=== PATIENT | female | born 1935 | race Hispanic/Latino ===

== ENCOUNTER 2017-04-15 09:32 | Observation (INO) | payer MEDICARE, OTHER ==
--- NOTE | 2017-04-15 09:38 | ED PDOC ---
Arrival/HPI - General Time Seen by Provider: 04/15/17 09:36 Historian: Family (daughter) EM Caveat: Language Barrier (daguhter function as tranlator) - History of Present Illness Narrative History of Present Illness (Text): 04/15/17 09:29 A 82 year old female, whose past medical history includes hypertension, hyperlipidemia and diabetes, is brought into the emergency department via EMS for a possible stroke. Daughter state this morning at 0855 the patient was in the bathroom and when see went up to get her she was standing with a blank stare. Daughter notes patient then appear to slump down and was about to fall but she caught her fall. The patient appear to loss consciousness for a few seconds and when she got back to it she has mild change in speech and was confused, so she called EMS. 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 Currently the daughter states the patient speech is normal. Daughter mentions the patient came back from [place] yesterday and took her sleeping and depression medication as usual last night. HPI and ROS limited due to acuity of patient condition. 04/15/17 12:16 Time/Duration: 1 hour Symptom Onset: Sudden Symptom Course: Other Quality: Other Activities at Onset: Rest Context: Home Past Medical History - Provider Review Nursing Documentation Reviewed: Yes Family/Social History - Physician Review Nursing Documentation Reviewed: Yes Family/Social History: Unknown Family HX Allergies/Home Meds Allergies/Adverse Reactions: Allergies No Known Allergies Allergy (Verified 04/15/17 09:35) Review of Systems - Review of Systems Systems not reviewed;Unavailable: Acuity of Condition Constitutional: Fatigue. absent: Fevers Respiratory: absent: SOB, Cough, Sputum Cardiovascular: Syncope. absent: Chest Pain Gastrointestinal: absent: Abdominal Pain, Constipation, Diarrhea, Nausea, Vomiting Genitourinary Female: absent: Dysuria Musculoskeletal: absent: Arthralgias Neurological: Focal Weakness, Speech Changes, Facial Droop. absent: Headache, Dizziness Physical Exam Vital Signs Reviewed: Yes Vital Signs Temp Pulse Resp BP Pulse Ox 04/15/17 11:54 102 H 16 149/115 H 94 L 04/15/17 09:32 98.2 F 101 H 18 149/106 H 90 L Temperature: Afebrile Blood Pressure: Hypertensive Pulse: Tachycardic Respiratory Rate: Normal Appearance: Positive for: Well-Appearing, Non-Toxic, Comfortable Pain Distress: None Mental Status: Positive for: Alert and Oriented X 3 - Systems Exam Head: Present: Atraumatic, Normocephalic Pupils: Present: PERRL Extroacular Muscles: Present: EOMI Conjunctiva: Present: Normal Mouth: Present: Moist Mucous Membranes Neck: Present: Normal Range of Motion Respiratory/Chest: Present: Clear to Auscultation, Good Air Exchange. No: Respiratory Distress, Accessory Muscle Use Cardiovascular: Present: Regular Rate and Rhythm, Normal S1, S2. No: Murmurs Abdomen: Present: Normal Bowel Sounds. No: Tenderness, Distention, Peritoneal Signs Back: Present: Normal Inspection Upper Extremity: Present: Normal Inspection. No: Cyanosis, Edema Lower Extremity: Present: Normal Inspection. No: Edema Neurological: Present: GCS=15, CN II-XII Intact, Speech Normal, Motor Func Grossly Intact, Normal Sensory Function Skin: Present: Warm, Dry, Normal Color. No: Rashes Psychiatric: Present: Alert, Oriented x 3, Normal Insight, Normal Concentration Medical Decision Making ED Course and Treatment: 04/15/17 09:29 Impression: A 82 year old female with syncope vs. CVA. Differential Diagnosis include but are not limited to: Syncope vs. CVA Plan: -- EKG -- Head CT -- Chest X-ray -- Labs -- Urinalysis -- Reassess and disposition Progress Notes: 04/15/17 09:33 Code stroke called on patient's arrival. On my exam she was neurologically at baseline with normal speech and strength. EKG: Ordered, reviewed, and independently interpreted the EKG. Rate : 107 BPM Rhythm : Sinus tachycardia Interpretation : Q waves in inferior and lateral leads. Comparison : No previous EKG for comparison. 04/15/17 09:[address] Jose Soria, who is aware and is requesting a call back after CT 04/15/17 10:[address]: Creator : Shanthi Cassidy MD COMPARISON: None available. FINDINGS: HEMORRHAGE: No intracranial hemorrhage. BRAIN: There are mild chronic microangiopathic changes. There is no mass, mass effect or abnormal extra-axial fluid collection. VENTRICLES: There is moderate age-related global parenchymal volume loss and proportionate enlargement of the ventricles and cortical sulci. CALVARIUM: The skull base and calvarium are normal. PARANASAL SINUSES: Predominantly clear. MASTOID AIR CELLS: Predominantly clear. OTHER FINDINGS: None. IMPRESSION: No acute intracranial abnormality. If there is a persistent focal neurologic deficit and an ongoing clinical concern for acute infarction, an MRI of the brain without intravenous contrast would be a more sensitive modality for evaluation of hyperacute/acute ischemic infarction. Mild chronic microangiopathic changes and moderate age-related global parenchymal volume loss. Findings were discussed with Dr. Stormy Saenz on 04/15/2017 at 10 a.m. 04/15/17 10:05 Chest X-ray: Creator : Quentin Reyes MD COMPARISON: No prior. FINDINGS: LUNGS: Poor inspiration with low lung volumes, crowded bronchovascular markings and mild bibasilar atelectasis. There may also be some mild bilateral lower lobe linear scarring is well. PLEURA: No significant pleural effusion identified, no pneumothorax apparent. CARDIOVASCULAR: Heart appears enlarged. OSSEOUS STRUCTURES: Mild scoliotic deformity lower thoracic region versus side bending . VISUALIZED UPPER ABDOMEN: Normal. OTHER FINDINGS: None. IMPRESSION: Poor inspiration with low lung volumes, crowded bronchovascular markings and mild bibasilar atelectasis. There may also be some mild bilateral lower lobe linear scarring is well. Patient is not a tpa candidate because there is no deficit. Labs show elevated d-dimer which was ordered due to patient's tachycardia, near syncope and recent airline travel. Trop x 1 negative. Patient is pending CTA to r/o PE. Dr. Soria is following patient and requesting duplex of carotids. Aspirin has been given. Even if CTA is negative, will need tele observation for tia vs syncope. 04/15/17 12:22 CTA negative for PE. Will transfer to tele observation for tia with neuro on consult. - Lab Interpretations Lab Results: 04/15/17 10:00 04/15/17 09:37 Lab Results 04/15/17 11:55: Blood Type Confirm B NEGATIVE 04/15/17 10:00: D-Dimer, Quantitative 4.30 H 04/15/17 10:00: PT 10.6, INR 0.98, APTT 25.0 04/15/17 10:00: WBC 7.9, RBC 4.37, Hgb 13.1, Hct 39.6, MCV 90.6, MCH 30.0, MCHC 33.1, RDW 14.1, Plt Count 331, MPV 10.6, Gran % 57.4, Lymph % (Auto) 33.2, Titus % (Auto) 4.7, Eos % (Auto) 4.2, Baso % (Auto) 0.5, Gran # 4.50, Lymph # 2.6, Titus # 0.4, Eos # 0.3, Baso # 0.04 04/15/17 09:50: Blood Type B NEGATIVE, Antibody Screen Negative, BBK History Checked No verified bt 04/15/17 09:37: Sodium 144, Potassium 4.2, Chloride 111 H, Carbon Dioxide 21, Anion Gap 16, BUN 29 H, Creatinine 0.9, Est GFR ( Amer) > 60, Est GFR ( Non-Af Amer) 60, Random Glucose 122 H, Calcium 9.3, Total Bilirubin 0.5, AST 35 , ALT 23, Alkaline Phosphatase 52, Troponin I < 0.01, Total Protein 7.3, Albumin 4.2, Globulin 3.1, Albumin/Globulin Ratio 1.4, Triglycerides 142, Cholesterol 170, LDL Cholesterol Direct 95, HDL Cholesterol 43 I have reviewed the lab results: Yes - RAD Interpretation Radiology Orders: 04/15/17 09:37 HEAD W/O (CODE STROKE) [CT] Stat CHEST PORTABLE [RAD] Stat 04/15/17 10:46 ANGIO CHEST PE PROTOCOL [CT] Stat 04/15/17 11:21 CAROTID & VERTEBRAL DUPLEX [US] Stat - Medication Orders Current Medication Orders: Discontinued Medications Aspirin (Aspirin Chewable) 324 mg PO STAT STA Stop: 04/15/17 12:03 Last Admin: 04/15/17 12:09 Dose: 324 mg Iodixanol (Visipaque 320 Mg/Ml 100 Ml) Confirm Administered Dose 100 ml IV .STK- MED ONE Stop: 04/15/17 12:15 NIHSS Scale (Fithian) Time Performed: 09:30 - How Severe is the Stoke Baseline Level of Consciousness: 0=Alert LOC to Questions: 0=Both comments correct LOC to commands: 0=Obeys both correctly Best Gaze: 0=Normal Visual: 0=No visual loss Facial: 0=Normal Motor Arm - Left: 0=No drift Motor Arm - Right: 0=No drift Motor Leg - Left: 0=No drift Motor Leg - Right: 0=No drift Limb Ataxia: 0=Absent Sensory: 0=Normal Best Language: 0=No aphasia Dysarthia: 0=Normal articulation Extinction & Inattention (Neglect): 0=Normal, no object Score: 0 Risk Level: No Stroke Risk rTPA Inclusion/Exclusion - Refusal of Treatment Patient Refused Treatment: No - Inclusion Criteria for Altepase Patient is 18 years or Older: Yes The Clinical Diagnosis of Ischemic Stroke That is Causing a Potentially Disabling Neurological Deficit: No Time of Onset is Well Established to be Less Than 270 Minute Before Treatment Would Begin: Yes Risk/Benefit Discussed With Patient/Family Member Present: No - Scribe Statement The provider has reviewed the documentation as recorded by the Scribe Nola Herzog Provider Scribe Attestation: All medical record entries made by the Scribe were at my direction and personally dictated by me. I have reviewed the chart and agree that the record accurately reflects my personal performance of the history, physical exam, medical decision making, and the department course for this patient. I have also personally directed, reviewed, and agree with the discharge instructions and disposition. Disposition/Present on Arrival - Present on Arrival Any Indicators Present on Arrival: No - Disposition Have Diagnosis and Disposition been Completed?: Yes Diagnosis: TIA (transient ischemic attack) Disposition: HOSPITALIZED Disposition Time: 10:00 Patient Plan: Observation Patient Problems: Current Active Problems Problem Status Onset TIA (transient ischemic attack) Acute Condition: FAIR Referrals: Bry Richter, [Primary Care Provider] - Follow up with primary
--- NOTE | 2017-04-15 10:02 | CT ---
PROCEDURE: CT HEAD WITHOUT CONTRAST. HISTORY: Code Stroke COMPARISON: None available. TECHNIQUE: Axial computed tomography images were obtained through the head/brain without intravenous contrast. Radiation dose: Total exam DLP = 629.06 mGy-cm. This CT exam was performed using one or more of the following dose reduction techniques: Automated exposure control, adjustment of the mA and/or kV according to patient size, and/or use of iterative reconstruction technique. FINDINGS: HEMORRHAGE: No intracranial hemorrhage. BRAIN: There are mild chronic microangiopathic changes. There is no mass, mass effect or abnormal extra-axial fluid collection. VENTRICLES: There is moderate age-related global parenchymal volume loss and proportionate enlargement of the ventricles and cortical sulci. CALVARIUM: The skull base and calvarium are normal. PARANASAL SINUSES: Predominantly clear. MASTOID AIR CELLS: Predominantly clear. OTHER FINDINGS: None. IMPRESSION: No acute intracranial abnormality. If there is a persistent focal neurologic deficit and an ongoing clinical concern for acute infarction, an MRI of the brain without intravenous contrast would be a more sensitive modality for evaluation of hyperacute/acute ischemic infarction. Mild chronic microangiopathic changes and moderate age-related global parenchymal volume loss. Findings were discussed with Dr. Stormy Saenz on 04/15/2017 at 10 a.m.
[2017-04-15 10:03] LABS: ADD MANUAL DIFF? NO
--- NOTE | 2017-04-15 10:04 | RAD ---
HISTORY: tia COMPARISON: No prior. FINDINGS: LUNGS: Poor inspiration with low lung volumes, crowded bronchovascular markings and mild bibasilar atelectasis. There may also be some mild bilateral lower lobe linear scarring is well. PLEURA: No significant pleural effusion identified, no pneumothorax apparent. CARDIOVASCULAR: Heart appears enlarged. OSSEOUS STRUCTURES: Mild scoliotic deformity lower thoracic region versus side bending . VISUALIZED UPPER ABDOMEN: Normal. OTHER FINDINGS: None. IMPRESSION: Poor inspiration with low lung volumes, crowded bronchovascular markings and mild bibasilar atelectasis. There may also be some mild bilateral lower lobe linear scarring is well.
[2017-04-15 10:10] LABS: BASO # 0.04 K/mm3 (0.0-2.0); BASO % 0.5 % (0.0-3.0); EOS # 0.3 (0.0-0.7); EOS % 4.2 % (1.5-5.0); GRAN % 57.4 % (50.0-68.0); HEMATOCRIT 39.6 % (36.0-48.0); LYMPH # 2.6 (1.2-3.4); LYMPH % 33.2 % (22.0-35.0); MEAN CELL VOLUME 90.6 fL (80.0-105.0); MEAN CORPUSCULAR HGB CONC 33.1 g/dl (31.0-37.0); MEAN PLATELET VOLUME 10.6 fl (7.0-11.0); MONO # 0.4 (0.1-0.6); MONO % 4.7 % (1.0-6.0); PLATELET COUNT 331 10^3/uL (120.0-450.0); RED CELL DISTRIBUTION WIDTH 14.1 % (11.5-14.5); WHITE BLOOD COUNT 7.9 10^3/ul (4.5-11.0)
[2017-04-15 10:19] LABS: INR 0.98 (0.93-1.08)
[2017-04-15 11:44] LABS: ALB/GLOB RATIO 1.4 (1.1-1.8); ALKALINE PHOSPHATASE 52 U/L (38-133); ALT/SGPT 23 U/L (7-56); AST/SGOT 35 U/L (15-39); BILIRUBIN,TOTAL 0.5 mg/dL (0.2-1.3); BLOOD UREA NITROGEN 29 mg/dL (7-21); CALCIUM 9.3 mg/dL (8.4-10.5); CARBON DIOXIDE 21 mmol/L (21-33); CHLORIDE 111 mmol/L (98-107); CHOLESTEROL 170 mg/dL (130-200); GFR AFRICAN-AMERICAN > 60; GLUCOSE,RANDOM 122 mg/dL (70-110); POTASSIUM 4.2 mmol/L (3.6-5.0); SODIUM 144 mmol/L (132-148); TOTAL PROTEIN 7.3 g/dL (5.8-8.3)
[2017-04-15 11:55] LABS: TROPONIN I < 0.01 ng/mL
[2017-04-15] MEDS ORDERED: Iodixanol 320 MG/ML 100 ML BOTTLE IV ONE (12:14)
--- NOTE | 2017-04-15 12:25 | CON ---
DATE: 04/15/2017 HISTORY OF PRESENT ILLNESS: This is an 82-year-old female with past medical history of hypertension, diabetes and hyperlipidemia. Came to the Emergency Room with possible stroke. The patient's daught er observed: The patient was in the bathroom and went up to see her. She had a blank stare and appe ared to slump down, but she caught her; did not hit her head. No loss of consciousness. PAST MEDICAL HISTORY: As above. ALLERGIES: No known drug allergies. REVIEW OF SYSTEMS: A 10-point review of system was negative except passing out. PHYSICAL EXAMINATION: VITAL SIGNS: Blood pressure 149/106. HEENT: Normocephalic and atraumatic. NECK: Supple. NEUROLOGIC: Alert, awake, oriented x 3. No aphasia. Cranial nerves II through XII were tested. Pu pils reactive. EOMs intact. Visual orona full. No facial asymmetry. Tongue midline. MOTOR: Moves all the extremities equally. Tone normal. REFLEXES: Deep tendon reflexes 1+. Both plantars are downgoing. SENSORY: Appears intact. CEREBELLAR AND GAIT: Deferred. IMPRESSION: Transient ischemic attack, less likely seizure. LABORATORY DATA: WBC 7.9, hemoglobin 13.1, hematocrit 39.6, platelets 331. CAT scan of the head was done; it did not show any acute infarct or bleed. Workup in progress. Continue present management. I will order the carotid Doppler, and further management after the results of above tests. [place] Soria MD cc: [id number] TT: 04/15/2017 12:25:00 Confirmation # [id number] Dictation # [id number] michael
--- NOTE | 2017-04-15 12:58 | CT ---
PROCEDURE: CT Chest with contrast (Pulmonary Angiogram) HISTORY: recent flight, chest pain, elevated dimer COMPARISON: None available. TECHNIQUE: Axial computed tomography images were obtained of the chest in the pulmonary arterial phase of enhancement. Coronal and sagittal reformatted images were created and reviewed. Intravenous contrast dose: 97 mL Visipaque 317 Radiation dose: Total exam DLP = 343.11 mGy-cm. This CT exam was performed using one or more of the following dose reduction techniques: Automated exposure control, adjustment of the mA and/or kV according to patient size, and/or use of iterative reconstruction technique. FINDINGS: PULMONARY ARTERIES: There are no filling defects in the pulmonary arteries to suggest acute pulmonary embolism. AORTA: The aorta is normal in caliber. No thoracic aortic aneurysm or aortic dissection. LUNGS: There is subsegmental atelectasis in the right upper lobe and both lower lobes. No evidence of consolidation or mass. PLEURAL SPACES: Unremarkable. No effusion orpneumothorax. HEART: There is mild cardiomegaly without pericardial effusion. LYMPH NODES: No pathologic lymphadenopathy. BONES, CHEST WALL: Unremarkable. No fracture or destructive lesion OTHER FINDINGS: There is a 1.4 cm simple cyst in the right hepatic lobe. IMPRESSION: No evidence of acute pulmonary embolism, aortic aneurysm or aortic dissection. Subsegmental atelectasis in the right upper lobe and both lower lobes. No evidence of consolidation, pleural effusion or pneumothorax. No pathologic lymphadenopathy.
[2017-04-15 13:21] LABS: URINE BILIRUBIN NEGATIVE (NEGATIVE); URINE BLOOD TRACE-INTACT (NEGATIVE); URINE GLUCOSE (UA) NEGATIVE (NEGATIVE); URINE KETONE NEGATIVE (NEGATIVE); URINE LEUKOCYTE ESTERASE NEGATIVE Leu/uL (NEGATIVE); URINE PROTEIN NEGATIVE mg/dL (<30 mg/dL); URINE UROBILINOGEN 0.2 E.U./dL (<1 E.U./dL)
[2017-04-15 13:24] LABS: URINE APPEARANCE CLEAR (CLEAR); URINE COLOR YELLOW (YELLOW)
[2017-04-15 13:51] LABS: URINE BACTERIA LARGE (NEG); URINE EPITHELIAL CELLS 0 - 2 /hpf (0-5); URINE RBC 0 - 2 /hpf (0-2)
[2017-04-15] MEDS ORDERED: [UNRECOGNIZED DRUG - OTHER] PO SCH (14:45)
--- NOTE | 2017-04-15 14:46 | US ---
PROCEDURE: Oral carotid artery duplex ultrasound HISTORY: Carotid stenosis TIA PHYSICIAN(S): Tyrone Rossi MD. TECHNIQUE: Duplex sonography and color-flow Doppler were used to evaluate the carotid bifurcations and limited segments of the vertebral arteries bilaterally. The exam is somewhat limited by tortuous vessels. FINDINGS: There is mild smooth heterogeneous echogenic plaque noted at the carotid bifurcations bilaterally. The peak systolic velocity in the proximal right internal carotid artery is 92 cm/sec. This corresponds to a 20 to 39% proximal right ICA stenosis. Normal systolic velocities are noted in the proximal right external carotid artery. There is antegrade flow in the right vertebral artery. The peak systolic velocity in the proximal left internal carotid artery is 96 cm/sec. This corresponds to a 20 to 39% proximal left ICA stenosis. Normal systolic velocities are noted in the proximal left external carotid artery. There is antegrade flow in the left vertebral artery. IMPRESSION: 1. Bilateral 20-39% proximal ICA stenoses. 2. Antegrade flow in both vertebral arteries.
--- NOTE | 2017-04-15 15:16 | CP.PCM.HP ---
<Aubrey Mejias - Last Filed: 04/15/17 14:58> History of Present Illness - History of Present Illness History of Present Illness: 82 year old mohawk speaking female with pmh of hypercholesterolemia, depression , and insomnia presented to the ED via EMS for likely TIA. Pt. flew in from [place] to visit her family. She was on the plane for approximately 9 hours straight with multiple stops from [place] to [place]. Her daughter was at bedside and translated. Per the daughter, this morning around 8:55am, her mom was brushing her teeth. The daughter found the pt. with a blank stare. The pt. then became unsteady and the daughter helped her to the toilet seat. Shortly afterwards, the patient became confused and she was moved with the helped of her son-in-law to the bed. The pt's eyes rolled back and she turned purple. The daughter contacted EMS. Approximately 3 min later, her symptoms started to wane. By the time EMS arrived she was near baseline with only a left gaze and right sided weakness in her hand. In the ED, pt. was evaluated and scored a 0 on the NIHSS scale and had no complaints. Head CT, Chest CT, Carotid US, did not have any evidence of acute findings. Repeat NIHSS scale was 0. On exam pt. had no complaints and denied AGARWAL/F/C/changes in hearing/vision, CP/SOB/N/V/D/C, numbness/tingling of extremities. Per pt's daughter, her mom was completely back to baseline. PMH: Depression, Hypercholesterolemia, Insomnia PSH: right oophorectomy, appendectomy SH: lives in [place], here visiting family no recent sick contacts Tob: denies Alc: denies Drugs: denies All: denies Meds: Atorvastatin Sulpiridum Mertaxapinum Fluoxetinun Present on Admission - Present on Admission Any Indicators Present on Admission: No Review of Systems - Review of Systems All systems: reviewed and no additional remarkable complaints except Past Patient History - Infectious Disease Hx of Infectious Diseases: None - Past Social History Smoking Status: Never Smoked Chewing Tobacco Use: No Cigar Use: No Alcohol: None Drugs: Denies Home Situation {Lives}: With Family - CARDIAC Hx Hypercholesterolemia: Yes - PULMONARY Hx Respiratory Disorders: No - NEUROLOGICAL Hx Neurological Disorder: No - HEENT Hx HEENT Problems: No - RENAL Hx Chronic Kidney Disease: No - ENDOCRINE/METABOLIC Hx Endocrine Disorders: No - HEMATOLOGICAL/ONCOLOGICAL Hx Blood Disorders: No - INTEGUMENTARY Hx Dermatological Problems: No - MUSCULOSKELETAL/RHEUMATOLOGICAL Hx Musculoskeletal Disorders: No - GASTROINTESTINAL Hx Gastrointestinal Disorders: No - GENITOURINARY/GYNECOLOGICAL Hx Genitourinary Disorders: No - PSYCHIATRIC Hx Depression: Yes Hx Substance Use: No - SURGICAL HISTORY Hx Surgeries: Yes Other/Comment: ovarian cyst - ANESTHESIA Hx Anesthesia: Yes Meds Home Medications: Home Medication List Medication Instructions Recorded Confirmed Type Aspirin [Ecotrin] 81 mg PO DAILY #14 04/16/17 Rx Allergies/Adverse Reactions: Allergies Allergy/AdvReac Type Severity Reaction Status Date / Time No Known Allergies Allergy Verified 04/15/17 09:35 Physical Exam - Constitutional Appears: Well - Head Exam Head Exam: ATRAUMATIC, NORMAL INSPECTION, NORMOCEPHALIC - Eye Exam Eye Exam: EOMI, Normal appearance, PERRL Pupil Exam: NORMAL ACCOMODATION, PERRL - ENT Exam ENT Exam: Mucous Membranes Moist, Normal Exam - Respiratory Exam Respiratory Exam: Clear to Auscultation Bilateral, NORMAL BREATHING PATTERN - Cardiovascular Exam Cardiovascular Exam: Tachycardia, REGULAR RHYTHM, +S1, +S2. absent: JVD - GI/Abdominal Exam GI & Abdominal Exam: Normal Bowel Sounds, Soft. absent: Tenderness - Back Exam Back exam: NORMAL INSPECTION - Neurological Exam Neurological exam: Alert, CN II-XII Intact, Oriented x3, Reflexes Normal - Psychiatric Exam Psychiatric exam: Normal Affect, Normal Mood - Skin Skin Exam: Dry, Intact, Normal Color, Warm Results - Vital Signs Recent Vital Signs: Last Vital Signs Temp 98.2 F 04/15/17 09:32 Pulse 94 H 04/15/17 14:19 Resp 16 04/15/17 14:19 BP 149/74 04/15/17 14:19 Pulse Ox 94 L 04/15/17 14:19 - Labs Result Diagrams: 04/15/17 10:00 04/15/17 09:37 Assessment & Plan - Assessment and Plan (Free Text) Assessment: 82F presents s/p likely TIA vs CVA Plan: TIA/CVA/AMS likely not CVA due to pt's full recovery and return to baseline per daughter NIHSS score of 0 on presentation to ED and 0 on admission to hospital Neuro exam negative CT head please see full report -No acute intracranial abnormalities with mild chronic microangiopathic changes EKG, Left axis deviation, No ST changes, pending official read CXR please see full report -poor insipration, enarged heart, bronchovascular markings, bibasilar atelectasis Chest CT - please see full report -No acute intracranial abdnormalities -Atelectasis in Right Upper Lobe and BL Lower Lobes, -No pneumothorax, consolidation, or effusions ASA 81mg daily LE Venous Duplex Echocardiogram Urine Culture Blood Culture HgA1c ISS low Neuor Cosfrankult - Jose Soria appreciate recs Depression(home meds) Sulpiridum 50mg daily Fluoxetinun 20mg nightly Hypercholesterolemia Atorvastatin 20mg Isomnia (home med) Mirtazapinum 30mg HG PPX DVT - lovenox GI - Protonix dispo heart healthy diet PT Eval and Treat - Date & Time Date: 04/15/17 Time: 15:20 <Amy Gardner - Last Filed: 04/16/17 15:51> Results - Vital Signs Recent Vital Signs: Last Vital Signs Temp 98.4 F 04/16/17 12:00 Pulse 102 H 04/16/17 14:00 Resp 19 04/16/17 12:00 BP 124/71 04/16/17 12:00 Pulse Ox 99 04/16/17 06:00 - Labs Result Diagrams: 04/15/17 10:00 04/15/17 09:37 Labs: Laboratory Results - last 24 hr 04/15/17 04/16/17 16:30 11:33 POC Glucose (mg/dL) 106 137 H Attending/Attestation - Attestation I have personally seen and examined this patient.: Yes I have fully participated in the care of the patient.: Yes I have reviewed all pertinent clinical information: Yes Notes (Text): 04/16/17 15:42 attending note; Patient seen and examined with resident in ER. Patient is a 82-year-old [place] female admitted with r sided weakness, unsteady gait, Blank stare a few minutes. Symptoms resolved In ER. CT head is negative. Possible TIA. Patient recently traveled from [place]. Elevated d-dimer; venous Doppler and CT angios negative. Neurology evaluation requested. Carotid Doppler, MRI ordered. Physical therapy evaluation requested. upon discharge the patient will follow up with PMD of choice.
[2017-04-15] MEDS ORDERED: Pantoprazole 20 mg EC Tab PO ONE (15:33)
[2017-04-15] MEDS: Insulin Reg-LOW-Coverage SC SCH ×2 (16:33→21:47)
[2017-04-15 18:03] VITALS: BMI 24.8
--- NOTE | 2017-04-15 22:23 | CARD ---
APPROVED REPORT EKG Measurement Heart [id number] <Conclusion> Sinus tachycardia Inferior infarct, age undetermined Anterolateral infarct, age undetermined Abnormal ECG
[2017-04-16 03:55] VITALS: RESP 19
[2017-04-16 06:09] VITALS: O2SAT 99
[2017-04-16] MEDS ORDERED: Pantoprazole 40 mg EC Tab PO SCH (06:30)
[2017-04-16] MEDS: Insulin Reg-LOW-Coverage SC SCH ×2 (08:49→12:44)
[2017-04-16] MEDS ORDERED: Enoxaparin 30 mg Syringe SC SCH (10:00)
--- NOTE | 2017-04-16 11:42 | MRI ---
PROCEDURE: MRI BRAIN WITHOUT CONTRAST HISTORY: cva COMPARISON: None. TECHNIQUE: Multiplanar, multisequence MR images of the brain were obtained without intravenous contrast enhancement. FINDINGS: HEMORRHAGE: None DWI: No evidence of an acute or early subacute infarction. BRAIN PARENCHYMA: No mass effect or edema. Moderate periventricular white matter signal abnormality, statistically most likely secondary to chronic microvascular ischemic disease. Mild atrophy noted as well. VENTRICLES: Unremarkable. No hydrocephalus. CRANIUM: Unremarkable. ORBITS: Grossly unremarkable. PARANASAL SINUSES/MASTOIDS: Clear VASCULAR SYSTEM: Skull base flow voids intact. OTHER FINDINGS: None. IMPRESSION: Moderate periventricular white matter signal abnormality, statistically most likely secondary to chronic microvascular ischemic disease. Mild atrophy noted as well.
--- NOTE | 2017-04-16 12:47 | CP.PCM.PCO ---
Physician Communication Note - Physician Communication Note Physician Communication Note: mri brain reviewed which is Normal. clear for dc [id number]
[2017-04-16 14:01] VITALS: BP 124/71; TEMP 98.4
[2017-04-16 14:57] VITALS: PULSE 102
--- NOTE | 2017-04-16 17:12 | CP.PCM.DIS ---
<Aubrey Mejias - Last Filed: 04/16/17 21:31> Provider - Provider Date of Admission: 04/15/17 13:10 Attending physician: Amy Gardner MD Time Spent in preparation of Discharge (in minutes): 35 Hospital Course - Lab Results Lab Results: Most Recent Lab Values WBC 7.9 10^3/ul (4.5-11.0) 04/15/17 10:00 RBC 4.37 10^6/uL (3.5-6.1) 04/15/17 10:00 Hgb 13.1 gm/dL (12.0-16.0) 04/15/17 10:00 Hct 39.6 % (36.0-48.0) 04/15/17 10:00 MCV 90.6 fL (80.0-105.0) 04/15/17 10:00 MCH 30.0 pg (25.0-35.0) 04/15/17 10:00 MCHC 33.1 g/dl (31.0-37.0) 04/15/17 10:00 RDW 14.1 % (11.5-14.5) 04/15/17 10:00 Plt Count 331 10^3/uL (120.0-450.0) 04/15/17 10:00 MPV 10.6 fl (7.0-11.0) 04/15/17 10:00 Gran % 57.4 % (50.0-68.0) 04/15/17 10:00 Lymph % (Auto) 33.2 % (22.0-35.0) 04/15/17 10:00 [place] % (Auto) 4.7 % (1.0-6.0) 04/15/17 10:00 Eos % (Auto) 4.2 % (1.5-5.0) 04/15/17 10:00 Baso % (Auto) 0.5 % (0.0-3.0) 04/15/17 10:00 Gran # 4.50 (1.4-6.5) 04/15/17 10:00 Lymph # 2.6 (1.2-3.4) 04/15/17 10:00 [place] # 0.4 (0.1-0.6) 04/15/17 10:00 Eos # 0.3 (0.0-0.7) 04/15/17 10:00 Baso # 0.04 K/mm3 (0.0-2.0) 04/15/17 10:00 PT 10.6 Seconds (9.9-11.8) 04/15/17 10:00 INR 0.98 (0.93-1.08) 04/15/17 10:00 APTT 25.0 Seconds (23.7-30.8) 04/15/17 10:00 D-Dimer, Quantitative 4.30 mg/L FEU (0-0.50) H 04/15/17 10:00 Sodium 144 mmol/L (132-148) 04/15/17 09:37 Potassium 4.2 mmol/L (3.6-5.0) 04/15/17 09:37 Chloride 111 mmol/L (98-107) H 04/15/17 09:37 Carbon Dioxide 21 mmol/L (21-33) 04/15/17 09:37 Anion Gap 16 (10-20) 04/15/17 09:37 BUN 29 mg/dL (7-21) H 04/15/17 09:37 Creatinine 0.9 mg/dL (0.5-1.4) 04/15/17 09:37 Est GFR ( Amer) > 60 04/15/17 09:37 Est GFR (Non-Af Amer) 60 04/15/17 09:37 POC Glucose (mg/dL) 137 mg/dL (65-110) H 04/16/17 11:33 Random Glucose 122 mg/dL (70-110) H 04/15/17 09:37 Hemoglobin A1c 5.6 % (4.2-6.5) 04/15/17 10:00 Calcium 9.3 mg/dL (8.4-10.5) 04/15/17 09:37 Total Bilirubin 0.5 mg/dL (0.2-1.3) 04/15/17 09:37 AST 35 U/L (15-39) 04/15/17 09:37 ALT 23 U/L (7-56) 04/15/17 09:37 Alkaline Phosphatase 52 U/L (38-133) 04/15/17 09:37 Troponin I < 0.01 ng/mL 04/15/17 09:37 Total Protein 7.3 g/dL (5.8-8.3) 04/15/17 09:37 Albumin 4.2 g/dL (3.0-4.8) 04/15/17 09:37 Globulin 3.1 gm/dL 04/15/17 09:37 Albumin/Globulin Ratio 1.4 (1.1-1.8) 04/15/17 09:37 Triglycerides 142 mg/dL (35-160) 04/15/17 09:37 Cholesterol 170 mg/dL (130-200) 04/15/17 09:37 LDL Cholesterol Direct 95 mg/dL (0-129) 04/15/17 09:37 HDL Cholesterol 43 mg/dL (29-60) 04/15/17 09:37 Urine Color Yellow (YELLOW) 04/15/17 13:10 Urine Appearance Clear (CLEAR) 04/15/17 13:10 Urine pH 6.0 (4.7-8.0) 04/15/17 13:10 Ur Specific [place] 1.015 (1.005-1.035) 04/15/17 13:10 Urine Protein Negative mg/dL (<30 mg/dL) 04/15/17 13:10 Urine Glucose (UA) Negative mg/dL (NEGATIVE) 04/15/17 13:10 Urine Ketones Negative mg/dL (NEGATIVE) 04/15/17 13:10 Urine Blood Trace-intact (NEGATIVE) H 04/15/17 13:10 Urine Nitrate Positive (NEGATIVE) H 04/15/17 13:10 Urine Bilirubin Negative (NEGATIVE) 04/15/17 13:10 Urine Urobilinogen 0.2 E.U./dL (<1 E.U./dL) 04/15/17 13:10 Ur Leukocyte Esterase Negative Henrry/uL (NEGATIVE) 04/15/17 13:10 Urine RBC 0 - 2 /hpf (0-2) 04/15/17 13:10 Urine WBC 2 - 5 /hpf (0-6) 04/15/17 13:10 Ur Epithelial Cells 0 - 2 /hpf (0-5) 04/15/17 13:10 Urine Bacteria Large (NEG) 04/15/17 13:10 Blood Type B NEGATIVE 04/15/17 09:50 Blood Type Confirm B NEGATIVE 04/15/17 11:55 Antibody Screen Negative 04/15/17 09:50 BBK History Checked No verified bt 04/15/17 09:50 - Hospital Course Hospital Course: 82 year old namibian speaking female with pmh of hypercholesterolemia, depression , and insomnia presented to the ED via EMS for possible TIA. Pt. flew in from [place] to visit her family. She was on the plane for approximately 9 hours straight with multiple stops from [place] to [place]. Her daughter was at bedside and translated. Per the daughter, found the pt. with a blank stare. Shortly afterwards, her symptoms got worse and her eyes "rolled back". A few mintues later her symptoms started to wane. By the time EMS arrived she was near baseline. In the ED, pt. was evaluated and scored a 0 on the NIHSS scale and had no complaints. Head CT, Chest CT, Carotid US, did not have any evidence of acute findings. Repeat NIHSS scale was 0. Neuro was consulted and ordered Brain MRI, which was also negative for any acute findings. BL LE venous Doppler was also done, which did not show any evidence of DVT. She was watched overnight and d/c the next day after Physical Therapy evaluated pt. This is a brief account of her stay, for more information, please see her chart. - Date & Time of H&P Date of H&P: 04/16/17 Time of H&P: 07:50 Discharge Exam - Head Exam Head Exam: ATRAUMATIC, NORMAL INSPECTION, NORMOCEPHALIC - Eye Exam Eye Exam: EOMI - ENT Exam ENT Exam: Mucous Membranes Moist - Respiratory Exam Respiratory Exam: Clear to PA & Lateral, NORMAL BREATHING PATTERN - Cardiovascular Exam Cardiovascular Exam: REGULAR RHYTHM, RRR, +S1, +S2. absent: JVD - GI/Abdominal Exam GI & Abdominal Exam: Normal Bowel Sounds, Soft, Unremarkable. absent: Tenderness - Extremities Exam Extremities exam: full ROM - Back Exam Back exam: FULL ROM. absent: rash noted - Neurological Exam Neurological exam: Alert, CN II-XII Intact, Normal Gait, Oriented x3, Reflexes Normal - Psychiatric Exam Psychiatric exam: Normal Affect, Normal Mood - Skin Skin Exam: Dry, Intact, Normal Color, Warm Discharge Plan - Discharge Medications Prescriptions: Aspirin [Ecotrin] 81 mg PO DAILY #14 - Follow Up Plan Condition: FAIR Disposition: HOME/ ROUTINE Instructions: Transient Ischemic Attack (DC) Additional Instructions: Patient is medically stable for discharge. Please start a new medication, Aspirin 81mg (baby aspirin) once daily. Please follow up with your primary care doctor within 1 week. Thank you for allowing us to take part in your care. Referrals: [facility], [Non-Staff] - [place] MD [Staff Provider] - <Amy Gardner - Last Filed: 04/17/17 14:53> Provider - Provider Date of Admission: 04/15/17 13:10 Attending physician: Amy Gardner MD Hospital Course - Lab Results Lab Results: Micro Results 04/16/17 07:40 Blood Blood Culture - Preliminary NO GROWTH AFTER 24 HOURS Most Recent Lab Values WBC 7.9 10^3/ul (4.5-11.0) 04/15/17 10:00 RBC 4.37 10^6/uL (3.5-6.1) 04/15/17 10:00 Hgb 13.1 gm/dL (12.0-16.0) 04/15/17 10:00 Hct 39.6 % (36.0-48.0) 04/15/17 10:00 MCV 90.6 fL (80.0-105.0) 04/15/17 10:00 MCH 30.0 pg (25.0-35.0) 04/15/17 10:00 MCHC 33.1 g/dl (31.0-37.0) 04/15/17 10:00 RDW 14.1 % (11.5-14.5) 04/15/17 10:00 Plt Count 331 10^3/uL (120.0-450.0) 04/15/17 10:00 MPV 10.6 fl (7.0-11.0) 04/15/17 10:00 Gran % 57.4 % (50.0-68.0) 04/15/17 10:00 Lymph % (Auto) 33.2 % (22.0-35.0) 04/15/17 10:00 [place] % (Auto) 4.7 % (1.0-6.0) 04/15/17 10:00 Eos % (Auto) 4.2 % (1.5-5.0) 04/15/17 10:00 Baso % (Auto) 0.5 % (0.0-3.0) 04/15/17 10:00 Gran # 4.50 (1.4-6.5) 04/15/17 10:00 Lymph # 2.6 (1.2-3.4) 04/15/17 10:00 [place] # 0.4 (0.1-0.6) 04/15/17 10:00 Eos # 0.3 (0.0-0.7) 04/15/17 10:00 Baso # 0.04 K/mm3 (0.0-2.0) 04/15/17 10:00 PT 10.6 Seconds (9.9-11.8) 04/15/17 10:00 INR 0.98 (0.93-1.08) 04/15/17 10:00 APTT 25.0 Seconds (23.7-30.8) 04/15/17 10:00 D-Dimer, Quantitative 4.30 mg/L FEU (0-0.50) H 04/15/17 10:00 Sodium 144 mmol/L (132-148) 04/15/17 09:37 Potassium 4.2 mmol/L (3.6-5.0) 04/15/17 09:37 Chloride 111 mmol/L (98-107) H 04/15/17 09:37 Carbon Dioxide 21 mmol/L (21-33) 04/15/17 09:37 Anion Gap 16 (10-20) 04/15/17 09:37 BUN 29 mg/dL (7-21) H 04/15/17 09:37 Creatinine 0.9 mg/dL (0.5-1.4) 04/15/17 09:37 Est GFR ( Amer) > 60 04/15/17 09:37 Est GFR (Non-Af Amer) 60 04/15/17 09:37 POC Glucose (mg/dL) 137 mg/dL (65-110) H 04/16/17 11:33 Random Glucose 122 mg/dL (70-110) H 04/15/17 09:37 Hemoglobin A1c 5.6 % (4.2-6.5) 04/15/17 10:00 Calcium 9.3 mg/dL (8.4-10.5) 04/15/17 09:37 Total Bilirubin 0.5 mg/dL (0.2-1.3) 04/15/17 09:37 AST 35 U/L (15-39) 04/15/17 09:37 ALT 23 U/L (7-56) 04/15/17 09:37 Alkaline Phosphatase 52 U/L (38-133) 04/15/17 09:37 Troponin I < 0.01 ng/mL 04/15/17 09:37 Total Protein 7.3 g/dL (5.8-8.3) 04/15/17 09:37 Albumin 4.2 g/dL (3.0-4.8) 04/15/17 09:37 Globulin 3.1 gm/dL 04/15/17 09:37 Albumin/Globulin Ratio 1.4 (1.1-1.8) 04/15/17 09:37 Triglycerides 142 mg/dL (35-160) 04/15/17 09:37 Cholesterol 170 mg/dL (130-200) 04/15/17 09:37 LDL Cholesterol Direct 95 mg/dL (0-129) 04/15/17 09:37 HDL Cholesterol 43 mg/dL (29-60) 04/15/17 09:37 Urine Color Yellow (YELLOW) 04/15/17 13:10 Urine Appearance Clear (CLEAR) 04/15/17 13:10 Urine pH 6.0 (4.7-8.0) 04/15/17 13:10 Ur Specific [place] 1.015 (1.005-1.035) 04/15/17 13:10 Urine Protein Negative mg/dL (<30 mg/dL) 04/15/17 13:10 Urine Glucose (UA) Negative mg/dL (NEGATIVE) 04/15/17 13:10 Urine Ketones Negative mg/dL (NEGATIVE) 04/15/17 13:10 Urine Blood Trace-intact (NEGATIVE) H 04/15/17 13:10 Urine Nitrate Positive (NEGATIVE) H 04/15/17 13:10 Urine Bilirubin Negative (NEGATIVE) 04/15/17 13:10 Urine Urobilinogen 0.2 E.U./dL (<1 E.U./dL) 04/15/17 13:10 Ur Leukocyte Esterase Negative Henrry/uL (NEGATIVE) 04/15/17 13:10 Urine RBC 0 - 2 /hpf (0-2) 04/15/17 13:10 Urine WBC 2 - 5 /hpf (0-6) 04/15/17 13:10 Ur Epithelial Cells 0 - 2 /hpf (0-5) 04/15/17 13:10 Urine Bacteria Large (NEG) 04/15/17 13:10 Blood Type B NEGATIVE 04/15/17 09:50 Blood Type Confirm B NEGATIVE 04/15/17 11:55 Antibody Screen Negative 04/15/17 09:50 BBK History Checked No verified bt 04/15/17 09:50 Attending/Attestation - Attestation I have personally seen and examined this patient.: Yes I have fully participated in the care of the patient.: Yes I have reviewed all pertinent clinical information, including history, physical exam and plan: Yes Notes (Text): 04/17/17 14:51 attending note; Patient seen and examined with resident in ER. Patient is a 82-year-old Citizen Of [place] female admitted with Right sided weakness, unsteady gait, Blank stare a few minutes. Symptoms resolved In ER. CT head is negative. Possible TIA. Patient recently traveled from [place]. Elevated d-dimer; venous Doppler and CT angios negative. Neurology evaluation with appreciated. Carotid Doppler without significant stenosis. MRI is negative for acute infarcts. Physical therapy evaluation appreciated. Patient was discharged home with her son. upon discharge the patient will follow up with PMD of choice. diagnosis; TIA Hypercholesterolemia Depression
--- NOTE | 2017-04-16 19:35 | US ---
HISTORY: Leg pain and swelling. Evaluate for DVT PHYSICIAN(S): Tyrone Rossi MD. TECHNIQUE: Duplex sonography and color-flow Doppler with graded compression were used to evaluate the deep venous systems of both lower extremities. FINDINGS: The visualized deep venous systems of both lower extremities are sonographically normal and compressible. Normal wave forms and augmentation are seen. There is no sonographic evidence for deep venous thrombosis in the visualized segments of both lower extremities. IMPRESSION: No sonographic evidence for deep venous thrombosis in the visualized segments of both lower extremities.
== END 2017-04-16 15:05 | disposition home or self-care (01) ==
LOC: ED 09:32 → ERH 13:10 → 2RNO 18:27
PROVIDERS: ADMIT Internal Medicine; ATTEND Internal Medicine
DX: R53.1 Weakness (principal); I65.23 Occlusion and stenosis of bilateral carotid arteries; E78.00 Pure hypercholesterolemia, unspecified; G47.00 Insomnia, unspecified; E11.9 Type 2 diabetes mellitus without complications; I10 Essential (primary) hypertension; E78.5 Hyperlipidemia, unspecified; F32.9 Major depressive disorder, single episode, unspecified
CPT/HCPCS: 36415; 70450; 70551; 71010; 71275; 80053; 80061; 81001; 82948; 83036; 84484; 85025; 85378; 85610; 85730; 86850; 86900; 87040; 87086; 93005; 93880; 93970; 97116; 97162; 99285; G0378; G8978; G8979; G8980; J1650; Q9967